=== PATIENT | female | born 1975 | race Caucasian/White ===

== ENCOUNTER 2019-01-29 14:02 | Emergency (ER) | payer BC, OTHER ==
[2019-01-29 15:41] VITALS: BP 103/72
--- NOTE | 2019-01-29 15:47 | UC ---
General HPI - HPI Summary HPI Summary: sore between the 4/5th toes on R foot x 4 days. now foot red and swollen. no hx MRSA or DM. no fever but has hx prior cellulitis. - History of Current Complaint Chief Complaint: [place] Stated Complaint: RIGHT FOOT SKIN CONCERN Time Seen by Provider: 01/29/19 15:33 Hx Obtained From: Patient Hx Last Menstrual Period: 01/18/19 Onset/Duration: Gradual Onset Timing: Constant Pain Intensity: 5 Associated Signs & Symptoms: Negative: Fever - Allergy/Home Medications Allergies/Adverse Reactions: Allergies Allergy/AdvReac Type Severity Reaction Status Date / Time No Known Allergies Allergy Verified 01/29/19 15:37 Home Medications: Home Medications Phentermine HCl 30 mg DAILY 01/29/19 [History Confirmed 01/29/19] PMH/Surg Hx/FS Hx/Imm Hx Previously Healthy: Yes - Surgical History Surgical History: Yes Surgery Procedure, Year, and Place: C-SECT x2. Gallbladder - Family History Known Family History: Positive: Non-Contributory - Social History Alcohol Use: Rare Substance Use Type: None Smoking Status (MU): Never Smoked Tobacco - Immunization History Most Recent Influenza Vaccination: Not the Season Vaccination Up to Date: Yes Review of Systems All Other Systems Reviewed And Are Negative: Yes Skin: Positive: Rash Musculoskeletal: Negative: Arthralgia Neurological: Negative: Weakness, Paresthesia, Numbness Physical Exam Triage Information Reviewed: Yes Appearance: Well-Appearing Vital Signs: Initial Vital Signs Temp 98 F 01/29/19 15:39 Pulse 86 01/29/19 15:39 Resp 16 01/29/19 15:39 BP 103/72 01/29/19 15:39 Pulse Ox 100 01/29/19 15:39 Vital Signs Reviewed: Yes Eyes: Positive: Conjunctiva Clear Neck: Positive: Supple Respiratory: Positive: Lungs clear Cardiovascular: Positive: RRR Abdomen Description: Positive: Nontender Musculoskeletal: Positive: ROM Intact Neurological: Positive: Alert Psychological: Positive: Age Appropriate Behavior Skin Exam: Normal Skin: Positive: Rashes - R dorsal lateral foot with slight swelling, warmth and erythema. maceration between the 4/5th toes. foot has full s/v/m function. Course/Dx - Differential Dx - Multi-Symptom Differential Diagnoses: Other - no concern for septic joint. - Diagnoses Provider Diagnosis: Cellulitis of right foot, Tinea pedis, right Discharge - Sign-Out/Discharge Documenting (check all that apply): Patient Departure All imaging exams completed and their final reports reviewed: No Studies - Discharge Plan Condition: Stable Disposition: HOME Prescriptions: Cephalexin CAP* [Keflex CAP*] 500 mg PO TID 10 Days #30 cap Ketoconazole 2 % CREAM (NF) [Nizoral 2% CREAM (NF)] 1 applic TOPICAL BID #1 tube Patient Education Materials: Athlete's Foot (ED), Cellulitis (DC) Referrals: Jason Metcalf MD [Primary Care Provider] - 3 Days - Billing Disposition and Condition Condition: STABLE Disposition: Home
== END 2019-01-29 16:03 | disposition home or self-care (01) ==
LOC: UCCORT 14:02
DX: L03.115 Cellulitis of right lower limb (principal); B35.3 Tinea pedis
CPT/HCPCS: 99202; G0463